=== PATIENT | female | born 1985 | race Caucasian/White ===

== ENCOUNTER 2016-09-28 16:49 | Emergency (ER) | payer SELFPAY ==
[~2016-09-28] VITALS: Ht 154.9 cm; Wt 70.5 kg
[2016-09-28 22:22] VITALS: BP 127/82
== END 2016-09-28 22:24 | disposition home or self-care (01) ==
LOC: EMS 16:51
DX: R07.9 Chest pain, unspecified (principal); R06.02 Shortness of breath; I10 Essential (primary) hypertension
CPT/HCPCS: 93005; 99284